=== PATIENT | female | born 1970 | race Caucasian/White ===

== ENCOUNTER 2018-08-25 17:13 | Emergency (ER) | payer BC, OTHER ==
[~2018-08-25] VITALS: Ht 170.2 cm; Wt 152.0 kg
[2018-08-25 17:55] LABS: ABSOLUTE NEUTROPHILS 8.1 thou/uL (1.4-8.2); BASOPHILS 1.2 % (0.0-2.0); EOSINOPHILS 0.6 % (0.0-3.0); HEMATOCRIT 41.8 % (37.0-47.0); HEMOGLOBIN 13.7 gm/dL (12.0-15.0); LYMPHOCYTES 16.3 % (24.0-44.0); MCH 28.4 pg (26.0-34.0); MCHC 32.8 g/dL (28.0-37.0); MCV 86.5 fL (80.0-100.0); PLATELET COUNT 304 thou/uL (150-400); POLYS 75.9 % (36.0-66.0); RBC 4.83 mil/uL (4.20-5.00); RDW 14.3 % (10.5-14.5); WBC 10.6 thou/uL (4.0-11.0)
[2018-08-25 17:59] LABS: CALCIUM 9.7 mg/dL (8.5-10.1); CREATININE 0.8 mg/dL (0.6-1.0); POTASSIUM 3.9 mmol/L (3.5-5.1)
[2018-08-25 18:04] LABS: ALBUMIN 3.6 g/dL (3.4-5.0); TOTAL BILIRUBIN 0.5 mg/dL (<0.1-1.0); TOTAL PROTEIN 7.7 g/dL (6.4-8.2)
[2018-08-25] MEDS ORDERED: CYMBALTA60 MG PO (19:09)
[2018-08-25] MEDS ORDERED: BUSPIRONE HCL10 MG PO (19:09)
[2018-08-25] MEDS ORDERED: LISINOPRIL10 MG PO (19:10)
[2018-08-25] MEDS ORDERED: LIPITOR10 MG PO (19:10)
[2018-08-25] MEDS ORDERED: SINGULAIR 10 MG10 M1 PO (19:10)
[2018-08-25] MEDS ORDERED: TOPAMAX50 MG PO (19:10)
[2018-08-25] MEDS ORDERED: NORCO 5-325 TA1 EACH PO (19:11)
[2018-08-25] MEDS ORDERED: VITAMIN B-121000 MC3 PO (19:12)
[2018-08-25] MEDS ORDERED: IBUPROFEN 200200 M1 PO (19:12)
[2018-08-25] MEDS ORDERED: VITAMIN D1000 UNI1 PO (19:13)
[2018-08-25] MEDS ORDERED: TRAMADOL 50 MG50 MG PO (19:54)
[2018-08-25] MEDS ORDERED: ANUSOL-HC25 MG RECTAL (19:54)
[2018-08-25 20:39] VITALS: BP 121/57
== END 2018-08-25 20:40 | disposition home or self-care (01) ==
LOC: ER 17:13
PROVIDERS: Emergency Medicine
DX: K52.9 Noninfective gastroenteritis and colitis, unspecified (principal); I10 Essential (primary) hypertension; Z90.49 Acquired absence of other specified parts of digestive tract; Z96.652 Presence of left artificial knee joint